=== PATIENT | female | born 1935 | race Caucasian/White ===

== ENCOUNTER 2019-11-16 12:31 | Inpatient (IN) | payer MEDICARE ==
[2019-11-16] VITALS (9 sets, daily range): BP systolic 85–117; BP diastolic 38–49
[~2019-11-16] VITALS: Ht 152.4 cm; Wt 49.0 kg
[2019-11-16] MEDS ORDERED: DONEPEZIL HCL5 MG PO (12:35)
[2019-11-16] MEDS ORDERED: ZYRTEC10 M5 PO (12:35)
[2019-11-16] MEDS ORDERED: LEXAPRO 10 MG T10 M1 PO (12:35)
[2019-11-16] MEDS ORDERED: VITAMIN D3100 MCG PO (12:36)
[2019-11-16] MEDS ORDERED: CONSTULOSE10 GM/152 PO (12:36)
[2019-11-16 13:01] LABS: ABSOLUTE BASOPHILS 0.1 thou/uL (0.0-0.2); ABSOLUTE EOSINOPHILS 0.1 thou/uL (0.0-0.7); ABSOLUTE MONOCYTES 0.5 thou/uL (0.0-1.2); ABSOLUTE NEUTROPHILS 4.5 thou/uL (1.6-8.1); BASOPHILS 1.1 %; EOSINOPHILS 0.9 %; HEMATOCRIT 33.1 % (37.0-47.0); HEMOGLOBIN 11.3 gm/dL (12.0-15.0); LYMPHOCYTES 16.4 %; MCH 30.9 pg (26.0-34.0); MONOCYTES 8.5 %; MPV 8.3 fl. (7.2-11.1); NUCLEATED RBCS 0 /100WBC; PLATELET COUNT* 205 thou/uL (150-400); POLYS 73.1 %; RBC 3.64 mil/uL (4.20-5.00); RDW-CV 13.5 % (10.5-14.5); WBC 6.1 thou/uL (4.0-11.0)
[2019-11-16 13:11] LABS: CALCIUM 7.9 mg/dL (8.5-10.1); POTASSIUM 4.1 mmol/L (3.5-5.1)
[2019-11-16 13:12] LABS: INR 1.4
[2019-11-16 13:15] LABS: ALBUMIN 3.2 g/dL (3.4-5.0); TOTAL BILIRUBIN 0.3 mg/dL (<0.1-1.0); TOTAL PROTEIN 5.9 g/dL (6.4-8.2)
[2019-11-16 13:33] LABS: URINE BILIRUBIN NEGATIVE (Negative); URINE BLOOD NEGATIVE (Negative); URINE CLARITY CLEAR; URINE COLOR STRAW; URINE GLUCOSE-RANDOM NEGATIVE (Negative); URINE KETONES NEGATIVE (Negative); URINE LEUKOCYTES-REFLEX NEGATIVE (Negative); URINE NITRITE-REFLEX NEGATIVE (Negative); URINE PROTEIN NEGATIVE (Negative); URINE SPECIFIC GRAVITY <= 1.005 (1.005-1.030); URINE UROBILINOGEN 0.2 E.U./dl (0.2-1.0)
[2019-11-16] MEDS ORDERED: SEROQUEL 25 MG25 MG PO (16:28)
[2019-11-17] VITALS (8 sets, daily range): BP systolic 102–155; BP diastolic 33–63
[2019-11-18 00:42] VITALS: BP 149/53
[2019-11-18 04:00] VITALS: BP 148/46
[2019-11-18 08:06] VITALS: BP 159/64
--- NOTE | 2019-11-18 09:25 | EKG ---
[place] [address] ELECTROCARDIOGRAM REPORT Name: POOJA KWON Room: [address] IN [facility]#: [id number] Admission: 11/16/19 Attend Phys: Trev Joahnsen, Discharge: Date of : 31 Date of Service: 11/16/19 1239 Report #: [id number] THIS REPORT FOR: //name// 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 : 1935 Requested By: Mervin Willard Order Number: [id number] MD: Harry Adams Measurements Intervals [place] Rate: 68 P: 61 [place]: 157 QRS: 38 QRSD: 107 T: 58 QT: 430 QTc: 458 Interpretive Statements sinus arrhythmia artifact noted Low voltage, extremity leads No previous ECG available for comparison Electronically Signed On 11-18-2019 9:25:23 CDT by Harry Adams [email or web address] <ELECTRONICALLY SIGNED> By: Harry Adams MD, [facility] 11/18/19 0925 1239 1239 Harry Adams MD, [facility] /EPI
--- NOTE | 2019-11-18 09:38 | EKG ---
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
[2019-11-18] MEDS ORDERED: LEVO-T50 MCG PO (09:43)
[2019-11-18 09:49] VITALS: BP 159/64
[2019-11-18] MEDS ORDERED: CORRECTOL5 M1 PO (11:28)
--- NOTE | 2019-11-18 12:27 | 2DMMODE ---
[place] [address] 2 D/M-MODE ECHOCARDIOGRAM Name: DOYLEPOOJA A Room: [address] IN [facility]#: [id number] Admission: 11/16/19 Attend Phys: Trev Johansen, Discharge: 11/18/19 Date of : 31 Date of Service: 11/18/19 1226 Report #: [id number] THIS REPORT FOR: cc: Kushal Cortés MD, Todd A. MD Blick,Harry Flanagan MD [facility] ~ APPROVED REPORT Study performed: 11/18/2019 09:38:47 EXAM: Comprehensive 2D, Doppler, and color-flow Echocardiogram Patient Location: In-Patient Room #: 002 Status: routine BSA: 1.44 HR: 67 bpm BP: 159/64 mmHg Rhythm: NSR Other Information Study Quality: Good Indications Abnormal ECG Bradycardia 2D Dimensions IVSd: 9.75 (7-11mm) LVOT Diam: 19.73 (18-24mm) LVDd: 39.71 mm PWd: 7.60 (7-11mm) Ascending Ao: 35.35 (22-36mm) LVDs: 26.86 (25-40mm) Aortic Root: 37.32 mm Volumes Left Atrial Volume (Systole) LA ESV Index: 32.50 mL/m2 Aortic Valve AoV Peak Ty.: 1.36 m/s AO Peak Gr.: 7.45 mmHg LVOT Max P.19 mmHg AO Mean Gr.: 4.34 mmHg LVOT Mean P.59 mmHg LVOT Max V: 1.24 m/s AO V2 VTI: 36.49 cm LVOT Mean V: 0.73 m/s MACY (VTI): 2.54 cm2 LVOT V1 VTI: 30.35 [place] [address] 2 D/M-MODE ECHOCARDIOGRAM Name: POOJA KWON Room: [address]#: [id number] Admission: 11/16/19 Attend Phys: Trev Johansen, Discharge: 11/18/19 Date of : 31 Date of Service: 11/18/19 1226 Report #: [id number] [place]: 2.61 m/s2 AI PHT: 472.47 ms Mitral Valve E/A Ratio: 0.81 MV Decel. Time: 299.57 ms MV E Max Ty.: 0.69 m/s MV PHT: 86.87 ms MVA (PHT): 2.53 cm2 TDI E/Lateral E': 7.67 E/Medial E': 6.27 Medial E' Ty.: 0.11 m/s Lateral E' Ty.: 0.09 m/s Pulmonary Valve PV Peak Ty.: 0.72 m/s PV Peak Gr.: 2.04 mmHg Tricuspid Valve RAP Estimate: 5.00 mmHg TR Peak Gr.: 30.10 mmHg RVSP: 35.00 mmHg PA Pressure: 35.00 mmHg Left Ventricle The left ventricle is normal size. There is normal LV segmental wall motion. There is normal left ventricular wall thickness. Left ventricular systolic function is normal. The left ventricular ejection fraction is within the normal range. LVEF is 60-65%. Grade I - abnormal relaxation pattern. Right Ventricle The right ventricle is normal size. The right ventricular systolic function is normal. Atria Left atrium is mildly dilated. The right atrium size is normal. Aortic Valve Mild aortic valve sclerosis. Moderate aortic regurgitation. There is no aortic valvular stenosis. Mitral Valve The mitral valve is normal in structure. Mild mitral regurgitation. No evidence [place] [address] 2 D/M-MODE ECHOCARDIOGRAM Name: POOJA KWON Room: [address]#: [id number] Admission: 11/16/19 Attend Phys: Trev Johansen, Discharge: 11/18/19 Date of : 31 Date of Service: 11/18/19 1226 Report #: [id number] Tricuspid Valve The tricuspid valve is normal in structure. Trace tricuspid regurgitation. estimated pa pressure 35 mm Hg Pulmonic Valve The pulmonary valve is normal in structure. There is trace pulmonic valvular regurgitation. Great Vessels The aortic root is normal in size. IVC is normal in size and collapses >50% with inspiration. Pericardium There is no pericardial effusion. <Conclusion> LVEF is 60-65%. Left atrium is mildly dilated. Mild aortic valve sclerosis. Moderate aortic regurgitation. Mild mitral regurgitation. <ELECTRONICALLY SIGNED> By: Harry Adams MD, [facility] 11/18/19 1226 1226 1226 Harry Adams MD, FAC /INF
--- NOTE | 2019-11-19 16:17 | CON ---
[address] [address] CONSULTATION Name: DOYLEPOOJA Pari Room: [address] IN ..#: [id number] Admission: 11/16/19 Attend Phys: Trev Johansen MD Discharge: 11/18/19 Date of : 31 Report #: [id number] THIS REPORT FOR: //name// cc: Kushal Cortés MD, Todd A. MD ~ THIS REPORT FOR: //name// CC: Trev Cortés MD DATE OF SERVICE: 11/17/2019 CARDIOLOGY CONSULTATION HISTORY OF PRESENT ILLNESS: The patient is an 84-year-old single white female who I was asked to see in the ICU today after she was noted to be bradycardic. The history was obtained from the son who is her power of commercial attorney. The patient has severe dementia. She is able feed herself and walk. However, she does not always know her son's name. She is not cognizant of the day. She lives in a memory care unit here in [place]. She has not been hospitalized for years. There has been no previous history of heart disease. There has been no history of chest pain, shortness of breath or syncope. There has been no history of heart murmur. According to the son, recently she has been weak and sleeps all the time and has some garbled speech. The staff at the memory care unit took her vitals yesterday and she is noted to be hypotensive and bradycardic. She was transferred by ambulance to [place] and admitted. I was asked to see her for further evaluation and treatment. PAST MEDICAL HISTORY: Unremarkable. She had not seen a doctor for years. There is no previous history of surgery. MEDICATIONS: At the [facility] center includes Aricept and Lexapro. ALLERGIES: There is no history of allergies. FAMILY HISTORY: She had a brother, when he was in his 30s. SOCIAL HISTORY: She is , lives here in [place] in a memory care unit. Quit smoking years ago, rarely uses alcohol. REVIEW OF SYSTEMS: No history of stroke, asthma, liver disease, kidney disease or cancer. She has had no recent fever, cough, vomiting, diarrhea or bleeding. PHYSICAL EXAMINATION: GENERAL: Revealed an elderly frail appearing female sitting in [place] [address] CONSULTATION Name: POOJA KWON Pari Room: [address] IN [facility]#: [id number] Admission: 11/16/19 Attend Phys: Trev Johansen MD Discharge: 11/18/19 Date of : 31 Report #: [id number] appeared in no distress. VITAL SIGNS: Blood pressure was 90/50, pulse is 50, she is afebrile. HEENT: She was anicteric. Conjunctivae are pink. Mucous membranes appear dry. NECK: Veins are nondistended. CHEST: Clear to auscultation. CARDIOVASCULAR: Regular bradycardia, grade 2 diastolic murmur along the left sternal border. ABDOMEN: Soft. EXTREMITIES: Had no edema. SKIN: Cool and dry. NEUROLOGIC: She would follow commands. RADIOLOGIC DATA: Her ECG on admission showed sinus bradycardia, occasional PAC. There is no ST or T-wave change. On the monitor last night, she remained in sinus bradycardia with rates down into the 40s. She had a portable chest x-ray in the Emergency Room last night that showed normal heart size and clear lung villa. LABORATORY DATA: Sodium 140, creatinine 1.0, albumin 3.2. Troponin 0.06. TSH 9 and T4 0.9. White blood cell count 6.1 and hematocrit 33.1. IMPRESSION AND RECOMMENDATIONS: 1. Sinus bradycardia, suspect sick sinus syndrome. Consider pacemaker placement. 2. Severe dementia. Family requests a no code blue status. <ELECTRONICALLY SIGNED> By: Harry Adams MD, FACC 11/19/19 1617 0938 [id number] Adams MD, FACC /nt
== END 2019-11-18 11:47 | DRG 308 ==
LOC: M.ERS 12:31 → M.ICU 13:49 → M.TBA-ER 13:49 → M.ICU 15:12
PROVIDERS: Emergency Medicine Emergency Medical Services; ADMIT Internal Medicine; ATTEND Internal Medicine
DX: I49.5 Sick sinus syndrome (principal); G93.41 Metabolic encephalopathy; E44.1 Mild protein-calorie malnutrition; F03.91 Unspecified dementia, unspecified severity, with behavioral disturbance; I95.89 Other hypotension; E03.9 Hypothyroidism, unspecified; Z66 Do not resuscitate; Z20.828 Contact with and (suspected) exposure to other viral communicable diseases; I48.91 Unspecified atrial fibrillation; F32.9 Major depressive disorder, single episode, unspecified; Z79.899 Other long term (current) drug therapy; Z68.21 Body mass index [BMI] 21.0-21.9, adult

== ENCOUNTER 2020-06-18 12:36 | Emergency (ER) | payer MEDICARE ==
[~2020-06-18] VITALS: Ht 162.6 cm; Wt 50.4 kg
[~2020-06-18 12:36] MED LIST: CONSTULOSE10 GM/152 PO; CORRECTOL5 M1 PO; DONEPEZIL HCL5 MG PO; LEVO-T50 MCG PO; LEXAPRO 10 MG T10 M1 PO; SEROQUEL 25 MG25 MG PO; VITAMIN D3100 MCG PO; ZYRTEC10 M5 PO
[2020-06-18] MEDS ORDERED: DIVALPROEX SOD125 MG PO (12:48)
[2020-06-18] MEDS ORDERED: TYLENOL325 M1 PO (12:49)
[2020-06-18 13:06] LABS: HEMATOCRIT 37.3 % (37.0-47.0); HEMOGLOBIN 12.4 gm/dL (12.0-15.0); MCH 30.1 pg (26.0-34.0); MCHC 33.2 g/dL (28.0-37.0); MCV 90.6 fL (80.0-100.0); MPV 7.6 fl. (7.2-11.1); NUCLEATED RBCS 0 /100WBC; PLATELET COUNT* 137 thou/uL (150-400); RBC 4.12 mil/uL (4.20-5.00); RDW-CV 14.4 % (10.5-14.5); WBC 5.4 thou/uL (4.0-11.0)
[2020-06-18 13:16] LABS: CALCIUM 8.5 mg/dL (8.5-10.1); CREATININE 0.8 mg/dL (0.6-1.3); POTASSIUM 3.7 mmol/L (3.5-5.1)
[2020-06-18 13:19] LABS: APTT 25.3 Seconds (25.0-31.3); INR 1.1; PROTIME 11.9 Seconds (9.20-11.50)
[2020-06-18 13:26] LABS: ALBUMIN 3.2 g/dL (3.4-5.0); TOTAL BILIRUBIN 0.5 mg/dL (<0.1-1.0); TOTAL PROTEIN 6.4 g/dL (6.4-8.2)
[2020-06-18 13:44] LABS: ABSOLUTE LYMPHOCYTES 1.1 thou/uL (0.8-5.3); ABSOLUTE MONOCYTES 0.3 thou/uL (0.0-1.2); ABSOLUTE NEUTROPHILS 3.9 thou/uL (1.6-8.1)
[2020-06-18 13:45] LABS: PLATELET ESTIMATE DECREASED
[2020-06-18 14:36] LABS: URINE BILIRUBIN NEGATIVE (Negative); URINE BLOOD NEGATIVE (Negative); URINE CLARITY CLEAR; URINE COLOR YELLOW; URINE GLUCOSE-RANDOM NEGATIVE (Negative); URINE KETONES 1+ (Negative); URINE LEUKOCYTES-REFLEX NEGATIVE (Negative); URINE NITRITE-REFLEX NEGATIVE (Negative); URINE PROTEIN NEGATIVE (Negative); URINE SPECIFIC GRAVITY 1.025 (1.005-1.030)
[2020-06-18 15:25] VITALS: BP 148/60
--- NOTE | 2020-06-18 16:04 | EKG ---
[place] [address] ELECTROCARDIOGRAM REPORT Name: POOJA KWON Room: [facility]#: [id number] Admission: 06/18/20 Attend Phys: Discharge: 06/18/20 Date of : 31 Date of Service: 06/18/20 1254 Report #: [id number] THIS REPORT FOR: //name// [facility] ED Test Date: 2020-06-18 Test Time: 12:54:16 Pat Name: POOJA KWON Department: Room: Gender: Filling Layer Up: NOEMI : 1935 Requested By: Mervin Willard Order Number: [id number] MD: Berlin Hamilton Measurements Intervals [place] Rate: 62 P: 77 [place]: 155 QRS: 11 QRSD: 94 T: 54 QT: 431 QTc: 438 Interpretive Statements Sinus rhythm Atrial premature complex Borderline T abnormalities, anterior leads Baseline wander in lead(s) II,III,aVF Compared to ECG 11/18/2019 08:28:09 Atrial premature complex(es) now present T-wave abnormality now present Sinus arrhythmia no longer present Electronically Signed On 06-18-2020 16:03:51 CDT by Berlin Hamilton [email or web address] <ELECTRONICALLY SIGNED> By: Berlin Hamilton MD, FACC 06/18/20 1603 1254 1254 Berlin Hamilton MD, [facility] /EPI
== END 2020-06-18 15:25 | disposition home or self-care (01) ==
LOC: M.ERS 12:36
PROVIDERS: Emergency Medicine Emergency Medical Services
DX: S92.102A Unspecified fracture of left talus, initial encounter for closed fracture (principal); R41.82 Altered mental status, unspecified; F03.90 Unspecified dementia, unspecified severity, without behavioral disturbance, psychotic disturbance, mood disturbance, and anxiety; F32.9 Major depressive disorder, single episode, unspecified; Z79.899 Other long term (current) drug therapy; W19.XXXA Unspecified fall, initial encounter; Y93.89 Activity, other specified; Y92.89 Other specified places as the place of occurrence of the external cause; Y99.8 Other external cause status

== ENCOUNTER 2020-06-22 19:48 | Emergency (ER) | payer MEDICARE ==
[~2020-06-22] VITALS: Ht 162.6 cm; Wt 48.1 kg
[~2020-06-22 19:48] MED LIST changes: +DIVALPROEX SOD125 MG PO; +TYLENOL325 M1 PO
[2020-06-22] MEDS ORDERED: BISACODYL10 MG RECTAL (20:04)
[2020-06-22] MEDS ORDERED: SEROQUEL 25 MG25 MG PO ×2 (20:05→20:06)
[2020-06-22 21:05] VITALS: BP 173/51
--- NOTE | 2020-06-23 11:46 | EKG ---
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1935 Requested By: Penelope Chávez Order Number: [id number] Leatha MD: Berlin Hamilton Measurements Intervals [place] Rate: 55 P: 67 [place]: 164 QRS: -14 QRSD: 93 T: 27 QT: 451 QTc: 432 Interpretive Statements Sinus rhythm Baseline wander in lead(s) V6 Compared to ECG 06/18/2020 12:54:16 Atrial premature complex(es) no longer present T-wave abnormality no longer present Electronically Signed On 06-23-2020 11:46:21 CDT by Berlin Hamilton [email or web address] <ELECTRONICALLY SIGNED> By: Berlin Hamilton MD, FACC 06/23/20 1146 55 55 Berlin Hamilton MD, FAC /EPI
== END 2020-06-22 21:05 | disposition home or self-care (01) ==
LOC: M.ERS 19:48
DX: R51.9 Headache, unspecified (principal); W18.39XA Other fall on same level, initial encounter; Y93.89 Activity, other specified; Y92.128 Other place in nursing home as the place of occurrence of the external cause; Y99.8 Other external cause status

== ENCOUNTER 2020-09-01 22:03 | Emergency (ER) | payer MEDICARE ==
[~2020-09-01] VITALS: Ht 157.5 cm; Wt 49.0 kg
[~2020-09-01 22:03] MED LIST changes: +BISACODYL10 MG RECTAL
[2020-09-01] MEDS ORDERED: VITAMIN D21250 MCG PO (22:33)
[2020-09-01] MEDS ORDERED: TYLENOL325 MG PO (22:33)
[2020-09-01] MEDS ORDERED: HALOPERIDOL2 MG/1 ML PO (22:34)
[2020-09-01 23:59] VITALS: BP 163/59
== END 2020-09-01 23:59 | disposition home or self-care (01) ==
LOC: M.ERS 22:03
DX: S00.12XA Contusion of left eyelid and periocular area, initial encounter (principal); S00.11XA Contusion of right eyelid and periocular area, initial encounter; R04.0 Epistaxis; F32.9 Major depressive disorder, single episode, unspecified; F03.90 Unspecified dementia, unspecified severity, without behavioral disturbance, psychotic disturbance, mood disturbance, and anxiety; Z79.899 Other long term (current) drug therapy; W19.XXXA Unspecified fall, initial encounter; Y93.89 Activity, other specified; Y92.128 Other place in nursing home as the place of occurrence of the external cause; Y99.8 Other external cause status